=== PATIENT | male | born 1940 | race Caucasian/White ===

== ENCOUNTER 2018-05-19 12:22 | Emergency (ER) | payer OTHER ==
[~2018-05-19] VITALS: Ht 177.8 cm; Wt 79.5 kg
[2018-05-19 15:52] LABS: HEMATOCRIT 41.6 % (38.0-50.0); HEMOGLOBIN 14.3 G/DL (12.5-16.6); MCH 30.5 PG (29.0-34.0); MCHC 34.4 G/DL (30.0-36.0); MCV 88.7 FL (86-99); PLATELET COUNT 170 K/uL (156-360); RBC DIS.WIDTH-CV 12.8 % (11.8-14.6); RBC DIS.WIDTH-SD 41.6 % (39-53); RED BLOOD COUNT 4.69 M/uL (4.00-5.50); WHITE BLOOD COUNT 11.2 K/uL (4.1-10.2)
[2018-05-19 16:06] LABS: CHLORIDE 110 mEq/L (99-109); POTASSIUM 4.3 mEq/L (3.7-5.4); SODIUM 139 mEq/L (136-147)
[2018-05-19 16:07] LABS: GLUCOSE 115 mg/dL (70-99)
[2018-05-19 16:11] LABS: CREATININE 0.9 mg/dL (0.6-1.3); GFR ESTIMATE (CALCULATED) > 59 mL/min/ (58.99-99999)
[2018-05-19 16:12] LABS: UREA NITROGEN (BUN) 16 mg/dL (9-23)
[2018-05-19] MEDS ORDERED: ROXICODONE5 MG PO (16:56)
[2018-05-19 17:45] VITALS: BP 143/85
== END 2018-05-19 17:45 | disposition home or self-care (01) ==
LOC: TRA 12:22 → EME 12:22 → TRA 17:45
PROVIDERS: Emergency Medicine
DX: S22.081A Stable burst fracture of T11-T12 vertebra, initial encounter for closed fracture (principal); S09.90XA Unspecified injury of head, initial encounter; M25.512 Pain in left shoulder; W11.XXXA Fall on and from ladder, initial encounter; E78.5 Hyperlipidemia, unspecified; K21.9 Gastro-esophageal reflux disease without esophagitis; I10 Essential (primary) hypertension; Z85.820 Personal history of malignant melanoma of skin
CPT/HCPCS: 70450; 71260; 72125; 72128; 72131; 73030; 74177; 80048; 85027; 99281; 99285